=== PATIENT | female | born 1990 | race Caucasian/White ===

== ENCOUNTER 2016-08-13 12:30 | Emergency (ER) | payer OTHER ==
[~2016-08-13 12:30] MED LIST: HABITROL 14 MG P1 EA TD; LORTAB 10-3251 EACH PO; NORCO 5-325 TA1 EACH PO; PROVENTIL HFA 61 INH INH; PROZAC40 MG PO; ROXICODONE5 MG PO; ZOFRAN4 MG PO
[2016-08-13 13:20] LABS: HEMOGLOBIN 16.8 gm/dl (12.3-15.3); RED BLOOD COUNT 5.5 M/UL (4.00-5.10); WHITE BLOOD COUNT 7.9 K/UL (4.5-11.0)
[2016-08-13 13:54] LABS: BUN/CREATININE RATIO 17 (0-10)
== END 2016-08-13 14:38 | disposition home or self-care (01) ==
LOC: ER1 12:30
PROVIDERS: Nurse Practitioner Family
DX: K86.1 Other chronic pancreatitis (principal); N39.0 Urinary tract infection, site not specified
CPT/HCPCS: 36415; 80053; 81001; 82150; 83605; 83690; 84703; 85025; 87086; 99284; J2270; J2405

== ENCOUNTER 2020-10-29 17:37 | Emergency (ER) | payer OTHER ==
[2020-10-29 19:57] LABS: HEMOGLOBIN 13.2 gm/dl (12.3-15.3); RED BLOOD COUNT 4.25 M/UL (4.00-5.10); WHITE BLOOD COUNT 21.3 K/UL (4.5-11.0)
[2020-10-29 20:15] LABS: BUN/CREATININE RATIO 24 (0-10)
[2020-10-29 21:18] LABS: BORDETELLA PARAPERTUSSIS Not Detected (Not Detectd); BORDETELLA PERTUSSIS Not Detected (Not Detectd); CHLAMYDIA PNEUMONIAE Not Detected (Not Detectd); CORONAVIRUS HKU1 Not Detected (Not Detectd); CORONAVIRUS NL63 Not Detected (Not Detectd); CORONOAVIRUS 229E Not Detected (Not Detectd); HUMAN METAPNEUMOVIRUS Not Detected (Not Detectd); INFLUENZA A Not Detected (Not Detectd); INFLUENZA B Not Detected (Not Detectd); MYCOPLASMA PNEUMONIAE Not Detected (Not Detectd); PARAINFLUENZA VIRUS 1 Not Detected (Not Detectd); PARAINFLUENZA VIRUS 2 Not Detected (Not Detectd); PARAINFLUENZA VIRUS 3 Not Detected (Not Detectd); PARAINFLUENZA VIRUS 4 Not Detected (Not Detectd); RESPIRATORY SYNCYTIAL VIRUS Not Detected (Not Detectd)
[2020-10-29 22:11] LABS: HUMAN RHINOVIRUS/ENTEROVIRUS DETECTED (Not Detectd); SARS-CoV-2 NOT DETECTED (Not Detectd)
[2020-10-29 22:13] LABS: CORONAVIRUS OC43 DETECTED (Not Detectd)
[2020-10-29] MEDS ORDERED: VENTOLIN HFA 66.7 GM INH (22:25)
== END 2020-10-29 22:45 | disposition home or self-care (01) ==
LOC: ER1 17:37
PROVIDERS: Physician Assistant
DX: J06.9 Acute upper respiratory infection, unspecified (principal); R07.9 Chest pain, unspecified; F17.210 Nicotine dependence, cigarettes, uncomplicated; Z20.822 Contact with and (suspected) exposure to COVID-19; Z90.49 Acquired absence of other specified parts of digestive tract; Z88.5 Allergy status to narcotic agent
CPT/HCPCS: 0240U; 36600; 71045; 80053; 82803; 83605; 83690; 83880; 85025; 85379; 85610; 85652; 85730; 87040; 87633; 93005; 94640; 94664; 96374; 96375; 99285; J1885; J2930; Q9967

== ENCOUNTER 2020-11-27 12:25 | Emergency (ER) | payer OTHER ==
[~2020-11-27 12:25] MED LIST changes: +VENTOLIN HFA 66.7 GM INH
[2020-11-27 14:46] LABS: HEMOGLOBIN 13.5 gm/dl (12.3-15.3); RED BLOOD COUNT 4.39 M/UL (4.00-5.10); WHITE BLOOD COUNT 10.4 K/UL (4.5-11.0)
[2020-11-27 16:07] LABS: BUN/CREATININE RATIO 14 (0-10)
== END 2020-11-27 19:04 | disposition home or self-care (01) ==
LOC: ER1 12:25
PROVIDERS: Physician Assistant Medical
DX: R07.9 Chest pain, unspecified (principal); R06.02 Shortness of breath; R60.0 Localized edema; J45.909 Unspecified asthma, uncomplicated; I10 Essential (primary) hypertension; F17.210 Nicotine dependence, cigarettes, uncomplicated; Z90.49 Acquired absence of other specified parts of digestive tract; Z88.5 Allergy status to narcotic agent
CPT/HCPCS: 71045; 80053; 82550; 82553; 83874; 83880; 84439; 84443; 84484; 85025; 93005; 99285